=== PATIENT | female | born 1945 | race Caucasian/White ===

== ENCOUNTER 2016-10-04 18:32 | Emergency (ER) | payer OTHER, BC ==
[~2016-10-04] VITALS: Ht 157.5 cm; Wt 96.0 kg
[~2016-10-04 18:32] MED LIST: ACTOPLUS MET1 TABLET PO; ALPRAZOLAM0.5 MG PO; ASPIRIN EC325 MG PO; ASPIRIN81 M1 PO; ASPIRIN81 M2 PO; CLARITIN10 MG PO; CRESTOR10 MG PO; CYANOCOBAL1000 MCG/2 IM; DIOVAN HCT 11 TABLE1 PO; DIOVAN HCT 3201 EAC1 PO; DIOVAN160 MG PO; DOCUSATE SODIU100 MG PO; DOXYCYCLINE HY100 M3 PO; ELAVIL25 MG PO; ENABLEX15 MG PO; HYDROCODON-ACE1 EAC7 PO; IRON INFUSIONS; KEPPRA500 MG PO; LEVETIRACETAM500 MG PO; LIPITOR40 MG PO; LITE COAT ASPI325 M1 PO; METOPROLOL TART75 MG PO; NEXIUM40 MG PO; PERCOCET 5/31 TABLET PO; PROTONIX40 MG PO; SYNTHROID50 MCG PO; TOPROL XL25 MG PO; VALSARTAN160 MG PO; VITAMIN B12 IM; VITAMIN D-32000 UNI2 PO; VITAMIN D50000 UNI4 PO; XANAX1 MG PO; XIFAXAN550 MG PO
[2016-10-04 19:41] LABS: ADD MIUA? NO; BILIRUBIN NEGATIVE; BLOOD NEGATIVE; COLOR YELLOW ((YELLOW)); GLUCOSE (STRIP) >=500; KETONES NEGATIVE; LEUKOCYTES NEGATIVE; NITRITE NEGATIVE; PROTEIN (STRIP) NEGATIVE; SPECIFIC GRAVITY 1.007 (1.000-1.030); UCUL ADDED? NO; UROBILINOGEN 0.2 MG/DL (0.2-1.0)
[2016-10-04 21:07] VITALS: BP 174/82
== END 2016-10-04 21:08 | disposition home or self-care (01) ==
LOC: EME 18:32
DX: R30.0 Dysuria (principal); R35.0 Frequency of micturition; R39.15 Urgency of urination; Z87.440 Personal history of urinary (tract) infections; I10 Essential (primary) hypertension; Z95.1 Presence of aortocoronary bypass graft; Z79.82 Long term (current) use of aspirin; Z90.710 Acquired absence of both cervix and uterus; Z87.891 Personal history of nicotine dependence
CPT/HCPCS: 81003; 87086; 99281; 99284

== ENCOUNTER 2016-12-02 10:23 | Inpatient (IN) | payer OTHER, BC ==
[~2016-12-02] VITALS: Ht 162.6 cm; Wt 77.2 kg
[2016-12-02 13:03] LABS: EOSINOPHIL (%) 1.4 % (0-5); EOSINOPHIL COUNT 0.1 K/uL (0-0.3); HEMATOCRIT 31.1 % (36.0-46.0); IMMATURE GRANULOCYTE COUNT 0.1 K/uL; INSTRUMENT ABS NEUTROPHIL CT 2.8 K/uL; LYMPHOCYTE COUNT 1.4 K/uL (1.0-2.8); MCH 30.9 PG (29.0-34.0); MCHC 33.8 G/DL (30.0-36.0); MCV 91.5 FL (83-99); MEAN PLAT.VOLUME 10.9 uM^3 (9.5-12.4); MONOCYTE (%) 11.9 % (3-12); MONOCYTE COUNT 0.6 K/uL (0-0.8); NEUTROPHIL (%) 56.7 % (45-76); NEUTROPHIL COUNT 2.8 K/uL (1.8-6.4); PLATELET COUNT 145 K/uL (156-360); RBC DIS.WIDTH-CV 13.5 % (11.8-14.6); RBC DIS.WIDTH-SD 44.8 % (39-53); WHITE BLOOD COUNT 4.9 K/uL (4.1-10.2)
[2016-12-02 13:17] LABS: CHLORIDE 100 mEq/L (99-109); SODIUM 132 mEq/L (136-147)
[2016-12-02 13:19] LABS: GLUCOSE 167 mg/dL (70-99)
[2016-12-02 13:20] LABS: ANION GAP 9 MEQ/L (2-14)
[2016-12-02 13:23] LABS: GFR ESTIMATE (CALCULATED) > 59 mL/min/
[2016-12-02 13:24] LABS: UREA NITROGEN (BUN) 22 mg/dL (9-23)
[2016-12-02 13:27] LABS: TROP-I INTERPRETATION NEGATIVE; TROPONIN-I < 0.01 ng/mL (0.0-0.30)
[2016-12-02 14:03] LABS: ADD MIUA? YES; BILIRUBIN NEGATIVE; BLOOD NEGATIVE; COLOR YELLOW ((YELLOW)); GLUCOSE (STRIP) NEGATIVE; KETONES NEGATIVE; LEUKOCYTES TRACE; NITRITE NEGATIVE; PROTEIN (STRIP) NEGATIVE; SPECIFIC GRAVITY 1.012 (1.000-1.030); UROBILINOGEN 0.2 MG/DL (0.2-1.0)
[2016-12-02 14:17] LABS: BACTERIA RARE /HPF; EPITHELIAL CELLS RARE /HPF; MUCUS NONE SEEN /LPF; RED BLOOD CELLS NONE SEEN /HPF (0-5); UCUL ADDED? YES
[2016-12-02] MEDS ORDERED: LO-DOSE ASPIRIN81 M2 PO (16:18)
[2016-12-02] MEDS ORDERED: [UNRECOGNIZED DRUG - CODE] DT (16:19)
[2016-12-02] MEDS ORDERED: KETOCONAZOLE120 ML TP (16:20)
[2016-12-02] MEDS ORDERED: BETAMETHASONE V60 ML TP (16:20)
[2016-12-02 16:45] LABS: HDL CHOLESTEROL 46 MG/DL (Desirable>=50); LDL CHOLESTEROL 121 mg/dL (Desirable<100); NON-HDL CHOLESTEROL 141 mg/dL (Desirable<160); TOTAL CHOLESTEROL 187 mg/dL (Desirable<200); TRIGLYCERIDES 100 MG/DL (Normal: <150)
[2016-12-02 17:18] VITALS: BP 150/71
[2016-12-02 19:53] VITALS: BP 149/63
[2016-12-03 04:03] VITALS: BP 149/66
[2016-12-03 06:32] LABS: HEMATOCRIT 24.5 % (36.0-46.0); MCHC 32.7 G/DL (30.0-36.0); MEAN PLAT.VOLUME 10.4 uM^3 (9.5-12.4); PLATELET COUNT 110 K/uL (156-360); RBC DIS.WIDTH-CV 13.5 % (11.8-14.6); RBC DIS.WIDTH-SD 47.1 % (39-53); RED BLOOD COUNT 2.58 M/uL (3.80-5.20); WHITE BLOOD COUNT 3.4 K/uL (4.1-10.2)
[2016-12-03 06:54] LABS: ALKALINE PHOSPHATASE 59 IU/L (3-129); ANION GAP 8 MEQ/L (2-14); CHLORIDE 107 MEQ/L (99-109); GFR ESTIMATE (CALCULATED) > 59 mL/min/; GLUCOSE 128 mg/dL (70-99); POTASSIUM 4.4 MEQ/L (3.7-5.4); SAMPLE HEMOLYSIS CHECK 0; SAMPLE ICTERIC CHECK 0; SAMPLE LIPEMIA CHECK 0; SODIUM 136 MEQ/L (136-147); UREA NITROGEN (BUN) 15 mg/dL (9-23)
[2016-12-03 07:26] VITALS: BP 141/64
[2016-12-03 07:59] LABS: Estimated Average Glucose 169 mg/dL (70-123); HEMOGLOBIN A1c (GLYCOHEMOGLOB) 7.5 % HGB (Below 5.7)
[2016-12-03 11:46] VITALS: BP 137/64
[2016-12-03] MEDS ORDERED: CEFTIN500 MG PO (12:03)
[2016-12-03] MEDS ORDERED: XANAX0.25 MG PO (12:04)
[2016-12-03 16:05] VITALS: BP 143/63
[2016-12-03 20:00] VITALS: BP 171/67
[2016-12-04] VITALS: BP 145/67
[2016-12-04 03:57] VITALS: BP 112/53
[2016-12-04 07:15] VITALS: BP 121/60
[2016-12-04] MEDS ORDERED: XANAX0.5 MG PO (15:16)
[2016-12-04] MEDS ORDERED: [UNRECOGNIZED DRUG - OTHER] IM (15:21)
[2016-12-04] MEDS ORDERED: PROTONIX40 MG PO (15:36)
[2016-12-04] MEDS ORDERED: LOPRESSOR50 MG PO (15:37)
[2016-12-04] MEDS ORDERED: LOVENOX40 MG/0.4 SC (15:39)
== END 2016-12-04 14:10 | DRG 92 ==
LOC: EME 10:23 → EDOF 15:47 → 5SOUTH 15:47 → CANRESERV 15:48 → ENRESERV 15:48 → 5SOUTH 17:04
PROVIDERS: Emergency Medicine; Internal Medicine
DX: R27.0 Ataxia, unspecified (principal); E87.1 Hypo-osmolality and hyponatremia; R26.2 Difficulty in walking, not elsewhere classified; D69.6 Thrombocytopenia, unspecified; R29.6 Repeated falls; I10 Essential (primary) hypertension; G40.909 Epilepsy, unspecified, not intractable, without status epilepticus; D64.9 Anemia, unspecified; E11.9 Type 2 diabetes mellitus without complications; E78.5 Hyperlipidemia, unspecified; I25.10 Atherosclerotic heart disease of native coronary artery without angina pectoris; K21.9 Gastro-esophageal reflux disease without esophagitis; G89.29 Other chronic pain; M54.9 Dorsalgia, unspecified; F41.9 Anxiety disorder, unspecified; E03.9 Hypothyroidism, unspecified; Z96.652 Presence of left artificial knee joint; Z87.440 Personal history of urinary (tract) infections; Z87.891 Personal history of nicotine dependence; Z95.1 Presence of aortocoronary bypass graft; Z95.3 Presence of xenogenic heart valve; Z83.3 Family history of diabetes mellitus; Z82.49 Family history of ischemic heart disease and other diseases of the circulatory system; Z80.3 Family history of malignant neoplasm of breast; Z79.82 Long term (current) use of aspirin
CPT/HCPCS: 70450; 70551; 71010; 80048; 80053; 80061; 81003; 83036; 83605; 84484; 85025; 85027; 87086; 90686; 92610 GN; 93005; 97530 GO; 97530 GP; 99281; 99285; J0696; J1650; J7030; J7050

== ENCOUNTER 2016-12-04 11:27 | Inpatient (IN) | payer OTHER, BC ==
[~2016-12-04] VITALS: Ht 162.6 cm; Wt 79.1 kg
[~2016-12-04 11:27] MED LIST changes: +BETAMETHASONE V60 ML TP; +CEFTIN500 MG PO; +KETOCONAZOLE120 ML TP; +LO-DOSE ASPIRIN81 M2 PO; +XANAX0.25 MG PO; +[UNRECOGNIZED DRUG - CODE] DT
[2016-12-04 14:00] VITALS: BP 131/57
[2016-12-04] MEDS ORDERED: XANAX0.5 MG PO (15:16)
[2016-12-04] MEDS ORDERED: [UNRECOGNIZED DRUG - OTHER] IM (15:21)
[2016-12-04] MEDS ORDERED: PROTONIX40 MG PO (15:36)
[2016-12-04] MEDS ORDERED: LOPRESSOR50 MG PO (15:37)
[2016-12-04] MEDS ORDERED: LOVENOX40 MG/0.4 SC (15:39)
[2016-12-04 23:23] VITALS: BP 115/58
[2016-12-05 05:35] VITALS: BP 114/54
[2016-12-05 15:17] VITALS: BP 142/60
[2016-12-05 15:23] LABS: HEMATOCRIT 27.9 % (36.0-46.0); MCHC 32.3 G/DL (30.0-36.0); MCV 96.2 FL (83-99); MEAN PLAT.VOLUME 10.4 uM^3 (9.5-12.4); PLATELET COUNT 134 K/uL (156-360); RBC DIS.WIDTH-CV 13.6 % (11.8-14.6); RBC DIS.WIDTH-SD 47.8 % (39-53); WHITE BLOOD COUNT 4.8 K/uL (4.1-10.2)
[2016-12-06 05:25] VITALS: BP 98/50
[2016-12-06 06:28] VITALS: BP 109/54
[2016-12-06 09:23] VITALS: BP 105/52
[2016-12-06 15:10] VITALS: BP 123/56
[2016-12-07 05:34] VITALS: BP 136/61
[2016-12-07 09:46] VITALS: BP 100/54
[2016-12-07] MEDS ORDERED: FLORASTOR250 MG PO (16:05)
[2016-12-07] MEDS ORDERED: DOXYCYCLINE HY100 M3 PO (16:05)
[2016-12-07 16:34] VITALS: BP 127/54
[2016-12-08 05:16] VITALS: BP 97/49
[2016-12-08 05:37] VITALS: BP 100/55
[2016-12-08 15:34] VITALS: BP 125/60
[2016-12-09 05:53] VITALS: BP 110/56
== END 2016-12-09 13:53 | disposition home health service (06) | DRG 91 ==
LOC: 3WEST 11:27 → ENPENDDIS 12-09 → 3WEST 12-09 13:53
PROVIDERS: Internal Medicine Cardiovascular Disease
PROC: F07M0ZZ Range of Motion and Joint Mobility Treatment of Musculoskeletal System - Whole Body (ICD-10-PCS; principal; 2016-12-04)
DX: R26.89 Other abnormalities of gait and mobility (principal); I11.9 Hypertensive heart disease without heart failure; E03.9 Hypothyroidism, unspecified; E11.9 Type 2 diabetes mellitus without complications; E78.5 Hyperlipidemia, unspecified; K21.9 Gastro-esophageal reflux disease without esophagitis; I35.0 Nonrheumatic aortic (valve) stenosis; G93.40 Encephalopathy, unspecified; I25.10 Atherosclerotic heart disease of native coronary artery without angina pectoris; R27.0 Ataxia, unspecified; G40.909 Epilepsy, unspecified, not intractable, without status epilepticus; G89.29 Other chronic pain; Z96.652 Presence of left artificial knee joint; D50.9 Iron deficiency anemia, unspecified; N39.0 Urinary tract infection, site not specified; E87.1 Hypo-osmolality and hyponatremia; H81.90 Unspecified disorder of vestibular function, unspecified ear; R42 Dizziness and giddiness; M54.9 Dorsalgia, unspecified; Z87.891 Personal history of nicotine dependence; Z80.3 Family history of malignant neoplasm of breast; Z79.82 Long term (current) use of aspirin; Z95.3 Presence of xenogenic heart valve; Z95.1 Presence of aortocoronary bypass graft; Z87.440 Personal history of urinary (tract) infections; R29.6 Repeated falls; I73.9 Peripheral vascular disease, unspecified; I34.1 Nonrheumatic mitral (valve) prolapse; Z82.49 Family history of ischemic heart disease and other diseases of the circulatory system; Z79.899 Other long term (current) drug therapy
CPT/HCPCS: 85027; 97110 GO; 97530 GP

== ENCOUNTER 2017-04-10 18:00 | Emergency (ER) | payer OTHER, BC ==
[~2017-04-10] VITALS: Ht 157.5 cm; Wt 69.6 kg
[~2017-04-10 18:00] MED LIST changes: +ALA-CORT30 GM TP; +FLORASTOR250 MG PO; +LOPRESSOR50 MG PO; +LOVENOX40 MG/0.4 SC; +XANAX0.5 MG PO; +[UNRECOGNIZED DRUG - OTHER] IM
[2017-04-10 18:43] LABS: HEMATOCRIT 32.7 % (36.0-46.0); HEMOGLOBIN 11.9 G/DL (11.9-15.5); MCH 32.3 PG (29.0-34.0); MCHC 36.4 G/DL (30.0-36.0); MCV 88.9 FL (83-99); PLATELET COUNT 198 K/uL (156-360); RBC DIS.WIDTH-CV 12.9 % (11.8-14.6); RBC DIS.WIDTH-SD 41.7 % (39-53); RED BLOOD COUNT 3.68 M/uL (3.80-5.20); WHITE BLOOD COUNT 8.8 K/uL (4.1-10.2)
[2017-04-10 18:53] LABS: APPEARANCE CLEAR ((CLEAR)); BILIRUBIN NEGATIVE; BLOOD NEGATIVE; COLOR YELLOW ((YELLOW)); GLUCOSE (STRIP) NEGATIVE; KETONES NEGATIVE; LEUKOCYTES TRACE; NITRITE NEGATIVE; PROTEIN (STRIP) 30; SPECIFIC GRAVITY 1.014 (1.000-1.030); UROBILINOGEN 0.2 MG/DL (0.2-1.0)
[2017-04-10 19:04] LABS: BACTERIA RARE /HPF; CALCIUM OXALATE CRYSTALS 1+ /HPF; EPITHELIAL CELLS RARE /HPF; MUCUS NONE SEEN /LPF; RED BLOOD CELLS 0-5 /HPF (0-5); UCUL ADDED? NO; WHITE BLOOD CELLS 0-5 /HPF (0-5)
[2017-04-10 19:05] LABS: ALBUMIN 4.3 G/DL (3.2-4.8); CHLORIDE 90 MEQ/L (99-109); POTASSIUM 4.4 MEQ/L (3.7-5.4); SODIUM 122 MEQ/L (136-147); TOTAL BILIRUBIN 1.5 MG/DL (0.0-1.0)
[2017-04-10 19:10] LABS: ALKALINE PHOSPHATASE 123 IU/L (3-129); ALT (GPT) 39 IU/L (3-49); AST (GOT) 61 IU/L (2-34); CREATININE 0.5 MG/DL (0.6-1.3); GFR ESTIMATE (CALCULATED) > 59 mL/min/; GLUCOSE 130 mg/dL (70-99); TOTAL PROTEIN 7.4 G/DL (6.4-8.3); UREA NITROGEN (BUN) 9 mg/dL (9-23)
[2017-04-11 00:54] VITALS: BP 153/73
== END 2017-04-11 01:05 | disposition home or self-care (01) ==
LOC: RME 18:00 → EME 18:00 → RME 04-11 01:05
PROVIDERS: Physician Assistant
DX: K59.00 Constipation, unspecified (principal); E87.1 Hypo-osmolality and hyponatremia; M48.54XA Collapsed vertebra, not elsewhere classified, thoracic region, initial encounter for fracture; M48.56XA Collapsed vertebra, not elsewhere classified, lumbar region, initial encounter for fracture; I10 Essential (primary) hypertension; E11.9 Type 2 diabetes mellitus without complications; K21.9 Gastro-esophageal reflux disease without esophagitis; F41.9 Anxiety disorder, unspecified; Z95.1 Presence of aortocoronary bypass graft; Z87.891 Personal history of nicotine dependence; Z90.49 Acquired absence of other specified parts of digestive tract; Z96.652 Presence of left artificial knee joint; Z88.5 Allergy status to narcotic agent; Z88.8 Allergy status to other drugs, medicaments and biological substances
CPT/HCPCS: 74177; 80053; 81003; 85027; 87502; 99281; 99285; J2405; J7030

== ENCOUNTER 2017-04-13 08:37 | Observation (INO) | payer OTHER, BC ==
[~2017-04-13] VITALS: Ht 157.5 cm; Wt 69.2 kg
[2017-04-13 10:49] LABS: BASOPHIL (%) 0.3 % (0-1); EOSINOPHIL (%) 0.8 % (0-5); EOSINOPHIL COUNT 0.1 K/uL (0-0.3); HEMATOCRIT 29.5 % (36.0-46.0); HEMOGLOBIN 10.8 G/DL (11.9-15.5); IMMATURE GRANULOCYTE (%) 0.3 % (0.0-0.7); LYMPHOCYTE (%) 18.9 % (15-42); LYMPHOCYTE COUNT 1.2 K/uL (1.0-2.8); MCH 32.5 PG (29.0-34.0); MCHC 36.6 G/DL (30.0-36.0); MCV 88.9 FL (83-99); MONOCYTE (%) 11.9 % (3-12); MONOCYTE COUNT 0.7 K/uL (0-0.8); NEUTROPHIL (%) 67.8 % (45-76); NEUTROPHIL COUNT 4.2 K/uL (1.8-6.4); PLATELET COUNT 173 K/uL (156-360); RBC DIS.WIDTH-CV 12.9 % (11.8-14.6); RBC DIS.WIDTH-SD 41.6 % (39-53); RED BLOOD COUNT 3.32 M/uL (3.80-5.20); WHITE BLOOD COUNT 6.2 K/uL (4.1-10.2)
[2017-04-13 11:20] LABS: ALBUMIN 3.8 G/DL (3.2-4.8); CHLORIDE 90 MEQ/L (99-109); POTASSIUM 4.4 MEQ/L (3.7-5.4); SODIUM 124 MEQ/L (136-147); TOTAL BILIRUBIN 1.6 MG/DL (0.0-1.0)
[2017-04-13 11:26] LABS: ALKALINE PHOSPHATASE 114 IU/L (3-129); ALT (GPT) 29 IU/L (3-49); AST (GOT) 41 IU/L (2-34); CREATININE 0.6 MG/DL (0.6-1.3); GFR ESTIMATE (CALCULATED) > 59 mL/min/; GLUCOSE 139 mg/dL (70-99); LIPASE 42 U/L (1.0-51.0); TOTAL PROTEIN 6.6 G/DL (6.4-8.3); UREA NITROGEN (BUN) 7 mg/dL (9-23)
[2017-04-13 13:21] LABS: HDL CHOLESTEROL 44 MG/DL (Desirable>=50); LDL CHOLESTEROL 101 mg/dL (Desirable<100); NON-HDL CHOLESTEROL 113 mg/dL (Desirable<160); TOTAL CHOLESTEROL 157 mg/dL (Desirable<200); TRIGLYCERIDES 60 MG/DL (Normal: <150)
[2017-04-13] MEDS ORDERED: ARMOUR THYROID30 MG PO (13:22)
[2017-04-13] MEDS ORDERED: CORTEF5 M1 PO ×2 (13:23)
[2017-04-13] MEDS ORDERED: TOPROL XL25 MG PO (13:25)
[2017-04-13] MEDS ORDERED: TOPROL XL50 MG PO (13:26)
[2017-04-13] MEDS ORDERED: KEPPRA500 MG PO (13:26)
[2017-04-13 16:16] VITALS: BP 142/60
[2017-04-13 17:28] VITALS: BP 167/70
[2017-04-13 18:00] LABS: APPEARANCE CLEAR ((CLEAR)); BILIRUBIN NEGATIVE; BLOOD NEGATIVE; COLOR YELLOW ((YELLOW)); GLUCOSE (STRIP) NEGATIVE; KETONES NEGATIVE; LEUKOCYTES NEGATIVE; NITRITE NEGATIVE; PROTEIN (STRIP) NEGATIVE; UCUL ADDED? NO
[2017-04-13 19:30] VITALS: BP 160/68
[2017-04-14 00:04] VITALS: BP 137/63
[2017-04-14 06:32] LABS: BASOPHIL (%) 0.6 % (0-1); EOSINOPHIL (%) 1.6 % (0-5); EOSINOPHIL COUNT 0.1 K/uL (0-0.3); HEMOGLOBIN 9.6 G/DL (11.9-15.5); IMMATURE GRANULOCYTE (%) 0.6 % (0.0-0.7); LYMPHOCYTE (%) 20.3 % (15-42); LYMPHOCYTE COUNT 1.1 K/uL (1.0-2.8); MCH 32.1 PG (29.0-34.0); MCHC 35.6 G/DL (30.0-36.0); MCV 90.3 FL (83-99); MONOCYTE (%) 14.5 % (3-12); MONOCYTE COUNT 0.8 K/uL (0-0.8); NEUTROPHIL (%) 62.4 % (45-76); NEUTROPHIL COUNT 3.2 K/uL (1.8-6.4); PLATELET COUNT 157 K/uL (156-360); RBC DIS.WIDTH-CV 13.1 % (11.8-14.6); RBC DIS.WIDTH-SD 42.5 % (39-53); RED BLOOD COUNT 2.99 M/uL (3.80-5.20); WHITE BLOOD COUNT 5.2 K/uL (4.1-10.2)
[2017-04-14 07:05] LABS: ALBUMIN 3.3 G/DL (3.2-4.8); ALKALINE PHOSPHATASE 101 IU/L (3-129); ALT (GPT) 24 IU/L (3-49); AST (GOT) 32 IU/L (2-34); CHLORIDE 97 MEQ/L (99-109); CREATININE 0.5 MG/DL (0.6-1.3); GFR ESTIMATE (CALCULATED) > 59 mL/min/; SODIUM 128 MEQ/L (136-147); TOTAL BILIRUBIN 1.4 MG/DL (0.0-1.0); UREA NITROGEN (BUN) 7 mg/dL (9-23)
[2017-04-14 07:09] LABS: GLUCOSE 104 mg/dL (70-99); TOTAL PROTEIN 5.4 G/DL (6.4-8.3)
[2017-04-14 07:33] VITALS: BP 132/60
[2017-04-14 12:56] VITALS: BP 176/77
[2017-04-14] MEDS ORDERED: BISAC-EVAC10 MG PR (13:49)
[2017-04-14] MEDS ORDERED: DOCUSATE SODIU100 MG PO (13:49)
[2017-04-14] MEDS ORDERED: POLYETHYLENE GL17 GM PO (13:50)
[2017-04-14] MEDS ORDERED: SENNA PLUS TAB1 EACH PO (13:50)
[2017-04-14 13:54] LABS: CHLORIDE 94 MEQ/L (99-109); CREATININE 0.6 MG/DL (0.6-1.3); GFR ESTIMATE (CALCULATED) > 59 mL/min/; GLUCOSE 135 mg/dL (70-99); POTASSIUM 4.2 MEQ/L (3.7-5.4); SODIUM 126 MEQ/L (136-147); UREA NITROGEN (BUN) 7 mg/dL (9-23)
[2017-04-14 16:47] VITALS: BP 173/72
[2017-04-14 17:39] LABS: CHLORIDE 96 MEQ/L (99-109); CREATININE 0.6 MG/DL (0.6-1.3); GFR ESTIMATE (CALCULATED) > 59 mL/min/; GLUCOSE 115 mg/dL (70-99); POTASSIUM 3.9 MEQ/L (3.7-5.4); SODIUM 126 MEQ/L (136-147); UREA NITROGEN (BUN) 7 mg/dL (9-23)
[2017-04-14 19:06] VITALS: BP 151/68
[2017-04-15 00:04] VITALS: BP 136/70
[2017-04-15 03:45] VITALS: BP 153/66
[2017-04-15 07:01] LABS: CHLORIDE 99 MEQ/L (99-109); CREATININE 0.5 MG/DL (0.6-1.3); GFR ESTIMATE (CALCULATED) > 59 mL/min/; GLUCOSE 106 mg/dL (70-99); POTASSIUM 3.8 MEQ/L (3.7-5.4); SODIUM 129 MEQ/L (136-147); UREA NITROGEN (BUN) 7 mg/dL (9-23)
[2017-04-15 08:08] VITALS: BP 152/69
[2017-04-15 09:03] LABS: HEMOGLOBIN A1c (GLYCOHEMOGLOB) 5.8 % (Below 5.7)
[2017-04-15 12:05] VITALS: BP 181/78
[2017-04-15 15:19] LABS: UR CREATININE CONCENTRATION 52.6 MG/DL
[2017-04-15 15:37] VITALS: BP 147/65
== END 2017-04-15 16:20 | disposition home or self-care (01) ==
LOC: EME 08:37 → EDOF 12:19 → ENRESERV 12:21 → EDOF 12:24 → ENRESERV 14:32 → 5WEST 15:02
PROVIDERS: Emergency Medicine; Internal Medicine; Internal Medicine Nephrology
DX: E87.1 Hypo-osmolality and hyponatremia (principal); K59.00 Constipation, unspecified; D64.9 Anemia, unspecified; K74.60 Unspecified cirrhosis of liver; I10 Essential (primary) hypertension; E11.9 Type 2 diabetes mellitus without complications; E78.5 Hyperlipidemia, unspecified; K21.9 Gastro-esophageal reflux disease without esophagitis; I25.10 Atherosclerotic heart disease of native coronary artery without angina pectoris; Z95.1 Presence of aortocoronary bypass graft; I35.0 Nonrheumatic aortic (valve) stenosis; Z95.2 Presence of prosthetic heart valve; E03.9 Hypothyroidism, unspecified; G40.909 Epilepsy, unspecified, not intractable, without status epilepticus; R10.84 Generalized abdominal pain; R33.9 Retention of urine, unspecified; Z87.440 Personal history of urinary (tract) infections; F39 Unspecified mood [affective] disorder; G89.29 Other chronic pain; M54.9 Dorsalgia, unspecified; Z96.652 Presence of left artificial knee joint; Z90.710 Acquired absence of both cervix and uterus; Z90.49 Acquired absence of other specified parts of digestive tract; Z87.891 Personal history of nicotine dependence; Z82.49 Family history of ischemic heart disease and other diseases of the circulatory system; Z80.3 Family history of malignant neoplasm of breast; Z88.5 Allergy status to narcotic agent; Z91.09 Other allergy status, other than to drugs and biological substances
CPT/HCPCS: 74018; 76705; 80048; 80048 91; 80053; 80061; 81003; 82570; 82948; 83036; 83690; 83930; 83935; 84156; 85025; 99281; 99285; C9113; G0378; J1650; J2405; J7030

== ENCOUNTER 2017-07-03 13:11 | Day surgery (SDC) | payer OTHER, BC ==
[~2017-07-03] VITALS: Ht 160 cm; Wt 65.2 kg
[~2017-07-03 13:11] MED LIST changes: +ARMOUR THYROID30 MG PO; +BISAC-EVAC10 MG PR; +CORTEF5 M1 PO; +IRON DEXTRAN IV; +POLYETHYLENE GL17 GM PO; +SENNA PLUS TAB1 EACH PO; +TOPROL XL50 MG PO; +VITAMIN K240 MCG PO
[2017-07-03 13:44] VITALS: BP 189/79
[2017-07-03 18:39] VITALS: BP 198/88
[2017-07-03 19:49] VITALS: BP 179/79
== END 2017-07-03 19:57 | disposition home or self-care (01) ==
LOC: SDC 13:11
DX: M80.88XA Other osteoporosis with current pathological fracture, vertebra(e), initial encounter for fracture (principal); I10 Essential (primary) hypertension; E03.9 Hypothyroidism, unspecified; K21.9 Gastro-esophageal reflux disease without esophagitis; F41.9 Anxiety disorder, unspecified; Z95.2 Presence of prosthetic heart valve; Z87.891 Personal history of nicotine dependence; Z79.82 Long term (current) use of aspirin
CPT/HCPCS: 72100; 76000; J0131; J0690; J1100; J1170; J1885; J2405; J2765; J3010; P9045

== ENCOUNTER 2017-07-31 13:48 | Day surgery (SDC) | payer OTHER, BC ==
[~2017-07-31] VITALS: Ht 160 cm; Wt 64.4 kg
[2017-07-31 14:22] LABS: HEMATOCRIT 33.3 % (36.0-46.0); HEMOGLOBIN 11.2 G/DL (11.9-15.5); MCH 32.1 PG (29.0-34.0); MCHC 33.6 G/DL (30.0-36.0); MCV 95.4 FL (83-99); PLATELET COUNT 173 K/uL (156-360); RBC DIS.WIDTH-CV 13.3 % (11.8-14.6); RED BLOOD COUNT 3.49 M/uL (3.80-5.20); WHITE BLOOD COUNT 5.3 K/uL (4.1-10.2)
[2017-07-31 15:05] VITALS: BP 159/72
[2017-07-31 15:27] LABS: CREATININE 0.5 MG/DL (0.6-1.3); GFR ESTIMATE (CALCULATED) > 59 mL/min/; GLUCOSE 100 mg/dL (70-99); UREA NITROGEN (BUN) 6 mg/dL (9-23)
[2017-07-31 15:28] LABS: CHLORIDE 98 MEQ/L (99-109); POTASSIUM 4.5 MEQ/L (3.7-5.4); SODIUM 134 MEQ/L (136-147)
[2017-07-31 19:05] VITALS: BP 188/74
[2017-07-31 19:22] VITALS: BP 173/74
[2017-07-31 20:04] VITALS: BP 157/68
[2017-07-31 20:47] VITALS: BP 164/70
== END 2017-07-31 20:45 | disposition home or self-care (01) ==
LOC: SDC 13:48
PROVIDERS: Neurological Surgery
PROC: 0QU03JZ Supplement Lumbar Vertebra with Synthetic Substitute, Percutaneous Approach (ICD-10-PCS; principal; 2017-07-31)
PROC: 0PU43JZ Supplement Thoracic Vertebra with Synthetic Substitute, Percutaneous Approach (ICD-10-PCS; principal; 2017-07-31)
DX: M80.88XA Other osteoporosis with current pathological fracture, vertebra(e), initial encounter for fracture (principal); M47.815 Spondylosis without myelopathy or radiculopathy, thoracolumbar region; I10 Essential (primary) hypertension; E11.9 Type 2 diabetes mellitus without complications; E03.9 Hypothyroidism, unspecified; I25.10 Atherosclerotic heart disease of native coronary artery without angina pectoris; Z95.1 Presence of aortocoronary bypass graft; Z87.891 Personal history of nicotine dependence; Z79.82 Long term (current) use of aspirin; D64.9 Anemia, unspecified
CPT/HCPCS: 80048; 82948; 85027; J0690; J1100; J2405; J3010